=== PATIENT | male | born 1995 | race Caucasian/White ===

== ENCOUNTER 2019-07-10 07:28 | Emergency (ER) | payer OTHER ==
[~2019-07-10] VITALS: Ht 182.9 cm; Wt 81.8 kg
[2019-07-10] MEDS ORDERED: NS 1,000 ML IV ONE (08:00)
--- NOTE | 2019-07-10 08:13 | REPVR ---
PROCEDURE INFORMATION: Exam: CT Head Without Contrast Exam date and time: 07/10/2019 7:59 AM Clinical history: 23 years old, male; Other: Syncope, headache; Additional info: Syncope, headache TECHNIQUE: Imaging protocol: Computed tomography of the head without contrast. Radiation optimization: All CT scans at this facility use at least one of these dose optimization techniques: automated exposure control; mA and/or kV adjustment per patient size (includes targeted exams where dose is matched to clinical indication); or iterative reconstruction. COMPARISON: No relevant prior studies available. FINDINGS: Brain: Normal. No hemorrhage. Unremarkable white matter. No mass effect. Ventricles: Normal. No ventriculomegaly. Bones/joints: Unremarkable. No acute fracture. Sinuses: Visualized sinuses are unremarkable. No fluid levels. Mastoid air cells: Visualized mastoid air cells are well aerated. Soft tissues: Unremarkable. IMPRESSION: No acute intracranial abnormality. Electronically signed by: Lokesh Ontiveros On 07/10/2019 08:13:08 AM
[2019-07-10 08:26] LABS: BASO % 0.2 % (0.0-1.0); HEMATOCRIT 44.6 % (42.0-52.0); HEMOGLOBIN 15.1 g/dl (13.5-17.5); LYMPH # 1.6 10^3/uL (1.5-5.0); LYMPH % 8.6 % (24.0-44.0); MEAN CORPUSCULAR HEMOGLOBIN 29.5 pg (27.0-33.0); MEAN CORPUSCULAR HGB CONC 33.9 g/dl (32.0-36.5); MEAN CORPUSCULAR VOLUME 87.3 fl (80.0-96.0); MONO # 1.7 10^3/uL (0.0-0.8); MONO % 9.3 % (0.0-5.0); NEUTROPHILS # 14.6 10^3/uL (1.5-8.5); NEUTROPHILS % 80.9 % (36.0-66.0); PLATELET COUNT, AUTOMATED 177 10^3/uL (150-450); RED BLOOD COUNT 5.11 10^6/uL (4.30-6.10); WHITE BLOOD COUNT 18.1 10^3/uL (4.0-10.0)
[2019-07-10] MEDS ORDERED: KETOROLAC 30 MG/ML VIAL (J1885) IV ONE (08:45)
--- NOTE | 2019-07-10 09:03 | REP ---
CHEST, TWO VIEWS: There is no evidence of acute infiltrate. No pleural effusion is seen. The heart is normal in size. The mediastinal silhouette is unremarkable. The visualized osseous structures are intact. IMPRESSION: No acute pulmonary disease. Electronically Signed by Robbie Mcintosh MD 07/11/2019 05:47 P
[2019-07-10 09:13] LABS: ALBUMIN 4.1 GM/DL (3.2-5.2); ALT/SGPT 21 U/L (12-78); BILIRUBIN,DIRECT 0.2 MG/DL (0.0-0.2); BILIRUBIN,TOTAL 0.6 MG/DL (0.2-1.0); BLOOD UREA NITROGEN 12 MG/DL (7-18); CALCIUM LEVEL 9.4 MG/DL (8.5-10.1); CARBON DIOXIDE LEVEL 24 MEQ/L (21-32); CHLORIDE LEVEL 106 MEQ/L (98-107); CK-MB VALUE MASS < 1.0 NG/ML (<3.6); CPK CREATINE PHOSPHOKINASE 191 U/L (39-308); CREATININE FOR GFR 1.37 MG/DL (0.70-1.30); GLOMERULAR FILTRATION RATE > 60.0 (>60); GLUCOSE, FASTING 99 MG/DL (70-100); MB/CK RELATIVE INDEX 0.52 (< OR =4); POTASSIUM SERUM 3.8 MEQ/L (3.5-5.1); SODIUM LEVEL 139 MEQ/L (136-145); TROPONIN I < 0.02 NG/ML (< 0.10)
[2019-07-10 09:35] LABS: INFLUENZA A AMPLIFICATION NEGATIVE (NEGATIVE); INFLUENZA B AMPLIFICATION NEGATIVE (NEGATIVE)
[2019-07-10 09:59] VITALS: BP 135/59
[2019-07-10] MEDS ORDERED: AUGMENTIN 875 MG TAB PO ONE (10:00)
[2019-07-10] MEDS ORDERED: AUGM875T28 PO (10:01)
--- NOTE | 2019-07-10 15:45 | ECGEPIP ---
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
== END 2019-07-10 10:31 | disposition home or self-care (01) ==
LOC: M ED 07:28 → EDBD 07:28 → M ED 10:31
DX: J02.9 Acute pharyngitis, unspecified (principal); R51 Headache; R55 Syncope and collapse; R53.81 Other malaise
CPT/HCPCS: 70450; 71046; 80048; 80076; 82550; 82553; 84484; 85025; 87502; 87880; 93005; 96374; 99284; J1885

== ENCOUNTER 2019-07-13 07:30 | Emergency (ER) | payer OTHER ==
[~2019-07-13] VITALS: Ht 182.9 cm; Wt 81.8 kg
[~2019-07-13 07:30] MED LIST: AUGM875T28 PO
[2019-07-13] MEDS ORDERED: MULTCAP PO (07:58)
[2019-07-13] MEDS ORDERED: FISH1000 PO (07:58)
[2019-07-13 09:20] VITALS: BP 115/67
== END 2019-07-13 09:35 | disposition home or self-care (01) ==
LOC: M ED 07:30
DX: J02.9 Acute pharyngitis, unspecified (principal)

== ENCOUNTER 2020-03-17 09:03 | Emergency (ER) | payer OTHER ==
[~2020-03-17] VITALS: Ht 182.9 cm; Wt 86.4 kg
[~2020-03-17 09:03] MED LIST changes: +FISH1000 PO; +MULTCAP PO
--- NOTE | 2020-03-17 10:21 | REP ---
CHEST, SINGLE VIEW: There is no evidence of acute infiltrate. No pleural effusion is seen. The heart is normal in size. The mediastinal silhouette is unremarkable. The visualized osseous structures are intact. IMPRESSION: No acute pulmonary disease. Electronically Signed by Robbie Mcintosh MD 03/17/2020 10:51 A
[2020-03-17] MEDS ORDERED: KETOROLAC TROMETHAMINE 10 MG TAB PO ONE (10:45)
[2020-03-17 11:03] VITALS: BP 114/60
--- NOTE | 2020-03-17 12:18 | ECGEPIP ---
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
== END 2020-03-17 11:07 | disposition home or self-care (01) ==
LOC: M ED 09:03
DX: R07.81 Pleurodynia (principal); Z88.5 Allergy status to narcotic agent; Z88.6 Allergy status to analgesic agent; Z79.899 Other long term (current) drug therapy

== ENCOUNTER → 2021-03-27 | Outpatient (REF) | payer OTHER | LOC: M LAB REF 19:10 | PROVIDERS: ATTEND Dermatology | DX: R21 Rash and other nonspecific skin eruption (principal) ==

== ENCOUNTER → 2021-03-27 | Outpatient (CLI) | payer OTHER ==
[2021-03-31 08:18] LABS: HSV-1 DNA Negative (Negative); HSV-2 DNA Negative (Negative); VARICELLA ZOSTER VIRUS PCR Negative (Negative)
== END ==
LOC: M LAB 16:24
PROVIDERS: ATTEND Dermatology
DX: R21 Rash and other nonspecific skin eruption (principal)
CPT/HCPCS: 11104; 11105; 36415; 86255; 87529; 87798; G0463